=== PATIENT | female | born 1950 | race Caucasian/White ===

== ENCOUNTER 2018-09-01 05:58 | Day surgery (SDC) | payer MEDICARE ==
[2018-08-31 14:36] VITALS: BMI 26.5
[~2018-09-01 05:58] MED LIST: Cyclopentolate 1% Opth Drop 2 ML BOT R EYE SCH; Phenylephrine 2.5% Ophth Soln 5 ML BOT R EYE SCH
[2018-09-01] MEDS ORDERED: EPINEPHrine 0.3 MG in Ophthalmic Irrigation Solution 500 ML IV SCH (06:00)
[2018-09-01] MEDS ORDERED: Midazolam HCl 2 mg/2 ml Vial ONE (06:15)
[2018-09-01] MEDS ORDERED: Phenylephrine 2.5% Ophth Soln 5 ML BOT ONE (06:27)
[2018-09-01] MEDS ORDERED: Cyclopentolate 1% Opth Drop 2 ML BOT ONE (06:27)
--- NOTE | 2018-09-01 16:08 | OP ---
DATE OF PROCEDURE: 09/01/2018 PREOPERATIVE DIAGNOSIS: Epiretinal membrane, right eye. POSTOPERATIVE DIAGNOSIS: Epiretinal membrane, right eye. PROCEDURE PERFORMED: Pars plana vitrectomy and membrane peel of the right eye. ANESTHESIA: Local with monitored anesthesia care. COMPLICATIONS: None. DESCRIPTION OF PROCEDURE: The patient was identified in the preoperative holding area. Appropriate informed consent for the planned surgical procedure on the right eye had been obtained. The patient was transported to the operative suite. Appropriate cardiopulmonary monitoring was established. Local anesthesia was obtained. Using retrobulbar modified Van Lint lid block using 50:50 mixture of 4% lidocaine and 0.75% bupivacaine. The patient was prepped and draped in usual sterile manner for ophthalmic surgery. On the right eye, lid speculum was placed in the right eye. A 25-gauge trocar was placed through the conjunctiva and sclera superotemporally, inferotemporally, and supranasally. Infusion line was placed inferotemporally. Light pipe and vitreous cutter were inserted the eye. Core vitrectomy was performed. Indocyanine green dye was infused on the posterior pole x1 identifying the epiretinal membrane and internal limiting membrane. This was elevated using the membrane scraper inferiorly and peeled across the macula using end-gripping forceps. Indirect ophthalmoscopy was used to exam the retina 360 degrees. No holes, breaks, or tears were identified. Trocars were removed. The eye was noted to retain pressure well. Retrobulbar Kenalog and subconjunctival Ancef were placed. Antibiotic ointment was placed. The eye was patched and shielded. The patient was taken to the postoperative recovery unit in good condition, having suffered no immediate perioperative complications. The patient was instructed to keep patch and shield on, avoid lifting or bending. Followup appointment with Dr. Childers. Job ID: [id number]
== END 2018-09-01 09:10 | disposition home or self-care (01) ==
LOC: SDC 05:58
PROVIDERS: ATTEND Ophthalmology Retina Specialist
PROC: 08T43ZZ Resection of Right Vitreous, Percutaneous Approach (ICD-10-PCS; principal; 2018-09-01)
PROC: 08NE3ZZ Release Right Retina, Percutaneous Approach (ICD-10-PCS; 2018-09-01)
DX: H35.371 Puckering of macula, right eye (principal)
CPT/HCPCS: J0171; J2250

== ENCOUNTER 2018-10-27 08:21 | Day surgery (SDC) | payer MEDICARE ==
[2018-10-26 14:50] VITALS: BMI 27.8
[~2018-10-27 08:21] MED LIST changes: -Cyclopentolate 1% Opth Drop 2 ML BOT R EYE SCH; +Fluorouracil 100 MG, Enoxaparin Sodium 25 MG, EPINEPHrine 0.3 MG in Ophthalmic Irrigati... IRR SCH; -Phenylephrine 2.5% Ophth Soln 5 ML BOT R EYE SCH
[2018-10-27] MEDS ORDERED: Phenylephrine 2.5% Ophth Soln 5 ML BOT ONE (09:43)
[2018-10-27] MEDS ORDERED: Cyclopentolate 1% Opth Drop 2 ML BOT ONE (09:43)
[2018-10-27] MEDS ORDERED: Midazolam HCl 2 mg/2 ml Vial ONE (11:17)
--- NOTE | 2018-10-27 12:51 | OP ---
DATE OF PROCEDURE: 10/27/2018 PREOPERATIVE DIAGNOSIS: Rhegmatogenous retinal detachment, right eye. POSTOPERATIVE DIAGNOSIS: Rhegmatogenous retinal detachment, right eye. PROCEDURES PERFORMED: Pars plana vitrectomy and retinal detachment repair, right eye. ANESTHESIA: Local with monitored anesthesia care. DESCRIPTION OF PROCEDURE: The patient was identified in preoperative holding area. Appropriate informed consent for the planned surgical procedure on the right eye had been obtained. The patient was transported to the operative suite, where appropriate cardiopulmonary monitoring was established. Local anesthesia was obtained using retrobulbar modified Van Lint lid block using 50:50 mixture of 4% lidocaine and 0.75% bupivacaine. The patient was prepped and draped in usual manner for ophthalmic surgery on right eye. Lid speculum was placed in the right eye. 25-gauge trocars were placed in conjunctiva and sclerae superotemporally, inferotemporally, and supranasally. Infusion line was placed inferotemporally. Light pipe vitreous cutter was inserted into the eye. Core vitrectomy was performed. Attention was turned to the temporal detachment. A tear was noted at the 10 o'clock position. Posterior drained retinotomy was created along the 8 o'clock meridian at the inferotemporal arcade. Complete air-fluid exchange was performed with 10 minutes being left for fluid to drain posteriorly. 360 laser was placed using Endolaser delivery device. 28% sulfur hexafluoride gas was infused into the eye. Trocars were removed. All three sclerotomy sutures were closed. Retrobulbar Kenalog and sequential Ancef were placed. Antibiotic ointment was placed. Eye was patched and shielded. The patient was advised to position right side down. Followup appointment with Dr. Childers. Job ID: [id number]
== END 2018-10-27 13:00 | disposition home or self-care (01) ==
LOC: SDC 08:21
PROVIDERS: ATTEND Ophthalmology Retina Specialist
PROC: 08T43ZZ Resection of Right Vitreous, Percutaneous Approach (ICD-10-PCS; principal; 2018-10-27)
PROC: 08QE3ZZ Repair Right Retina, Percutaneous Approach (ICD-10-PCS; 2018-10-27)
DX: H33.011 Retinal detachment with single break, right eye (principal); Z79.899 Other long term (current) drug therapy; Z88.5 Allergy status to narcotic agent
CPT/HCPCS: 67025; J0171; J1650; J2250; J9190